=== PATIENT | male | born 1970 | race Caucasian/White ===

== ENCOUNTER 2019-06-11 10:10 | Inpatient (IN) | payer OTHER ==
[2019-06-11 10:37] LABS: ADD MAN DIFF? NO
[2019-06-11 10:39] LABS: WHITE BLOOD COUNT 10.4 10^3/ul (4.8-10.8)
[2019-06-11 10:39] LABS: BASOPHILS % 0.4 % (0.0-2.0); EOSINOPHILS % 0.1 % (0.0-7.0); HEMATOCRIT 50.8 % (42.0-52.0); HEMOGLOBIN 15.9 g/dl (14.0-18.0); LYMPHOCYTES # 1.1 10^3/ul (0.8-2.9); MEAN CORPUSCULAR HEMOGLOBIN 26.7 pg (29.0-33.0); MEAN CORPUSCULAR HGB CONC 31.3 g/dl (32.0-37.0); MEAN CORPUSCULAR VOLUME 85.2 fl (82.0-101.0); MEAN PLATELET VOLUME 8.5 fl (7.4-10.4); MONOCYTE # 0.6 10^3/ul (0.3-0.9); NEUTROPHIL # 8.5 10^3/ul (1.6-7.5); NEUTROPHILS % 81.8 % (39.0-77.0); PLATELET COUNT 209 10^3/UL (140-415); RED BLOOD COUNT 5.96 10^6/ul (4.70-6.10); RED CELL DISTRIBUTION WIDTH 16.6 % (11.5-14.5)
[2019-06-11] MEDS: CEFEPIME 2GM/50 ML (PMX) 50 ML IVPB (10:39)
[2019-06-11] MEDS: SODIUM CHLORIDE 0.9% 1L BAG IV* (10:39)
[2019-06-11 10:55] LABS: ALANINE AMINOTRANSFERASE 31 IU/L (13-69); ALBUMIN 4.1 g/dl (3.3-4.9); ALKALINE PHOSPHATASE 121 IU/L (42-121); ANION GAP 13 (5-13); ASPARTATE AMINO TRANSFERASE 26 IU/L (15-46); BILIRUBIN,INDIRECT 0.7 mg/dl (0-1.1); BILIRUBIN,TOTAL 0.7 mg/dl (0.2-1.3); BLOOD UREA NITROGEN 50 mg/dl (7-20); CALCIUM 9.1 mg/dl (8.4-10.2); CARBON DIOXIDE 22 mmol/L (21-31); CHLORIDE 97 mmol/L (97-110); CREATININE 2.35 mg/dl (0.61-1.24); Estimated GFR 30 mL/min (>60); GLUCOSE 119 mg/dl (70-220); POTASSIUM 5.5 mmol/L (3.5-5.1); SODIUM 132 mmol/L (135-144); TOTAL PROTEIN 7.8 g/dl (6.1-8.1)
[2019-06-11 11:02] LABS: INR 1.09; PARTIAL THROMBOPLASTIN TIME 31.3 Sec (23.0-35.0); PROTIME 14.2 Sec (11.9-14.9); PT RATIO 1.1
[2019-06-11 11:06] LABS: TROPONIN-I 0.076 ng/ml (0.000-0.120)
[2019-06-11] MEDS: VANCOMYCIN 1 GM (PMX) 250 ML IVPB (11:46)
[2019-06-11] MEDS: NORepinephrine 8MG/250 ML (PMX 250 ML IV (11:59)
[2019-06-11 13:19] LABS: LACTIC ACID 1.9 mmol/L (0.5-2.0)
[2019-06-11] MEDS ORDERED: SOD CHLORIDE 0.9% 1,000 ML IV (13:51)
[2019-06-11] MEDS ORDERED: ONDANSETRON 4 MG INJ IV (14:00)
[2019-06-11] MEDS ORDERED: NACL 0.9% 3 ML SYG IV (14:00)
[2019-06-11] MEDS ORDERED: VANCOMYCIN IV PER PHARMACY XX (14:30)
[2019-06-11] MEDS ORDERED: ALBUTEROL/IPRATROPIUM (NEB) 3 ML AMP NEB (14:30)
[2019-06-11 15:02] LABS: AADO2 Arterial 154.3 mmHg (7.0-24.0); Allen Test ACCEPTAB; Arterial Base Excess -9.6 mmol/L (-3.0-3); Arterial Blood Gas Oxygen Sat 95.1 mmHG (95.0-98.0); Arterial COHb 1.1 % (0.0-3.0); Arterial HCO3 15.6 mmol/L (22.0-26.0); Arterial MetHb 0.1 % (0.0-1.5); Arterial pCO2 32.5 mmhg (35-45); MODE NASAL CANNULA; Site Right Radial
[2019-06-11] MEDS ORDERED: VASOPRESSIN 60 UNIT in DEXTROSE 5% 57 ML IV (15:30)
[2019-06-11 15:32] LABS: LACTIC ACID 3.2 mmol/L (0.5-2.0)
[2019-06-11] MEDS ORDERED: SODIUM BICARBONATE (IV ADD) 100 MEQ in DEXTROSE 5%-0.45% NACL 1,000 ML IV (16:00)
[2019-06-11] MEDS ORDERED: PENDING SANTYL ORDER FOR WOUND CARE XX (16:00)
[2019-06-11] MEDS: CEFTRIAXONE 1 GM/50 ML (PMX) 50 ML IVPB (16:39)
[2019-06-11] MEDS: SODIUM BICARBONATE (IV ADD) 100 MEQ in DEXTROSE 5%-0.45% NACL 1,000 ML IV (16:40)
[2019-06-11] MEDS: HEPARIN 5,000 UNIT/1 ML VIAL SC (20:52)
[2019-06-12] MEDS: SODIUM BICARBONATE (IV ADD) 100 MEQ in DEXTROSE 5%-0.45% NACL 1,000 ML IV ×2 (03:05→13:01)
[2019-06-12] MEDS: FAMOTIDINE 20 MG INJ IV (05:24)
[2019-06-12 06:30] LABS: HEMATOCRIT 37.7 % (42.0-52.0); HEMOGLOBIN 12.3 g/dl (14.0-18.0); MEAN CORPUSCULAR HEMOGLOBIN 27.3 pg (29.0-33.0); MEAN CORPUSCULAR HGB CONC 32.6 g/dl (32.0-37.0); MEAN CORPUSCULAR VOLUME 83.6 fl (82.0-101.0); MEAN PLATELET VOLUME 8.9 fl (7.4-10.4); PLATELET COUNT 184 10^3/UL (140-415); POSITIVE DIFF @See below; RED BLOOD COUNT 4.51 10^6/ul (4.70-6.10); RED CELL DISTRIBUTION WIDTH 16.7 % (11.5-14.5)
[2019-06-12 06:30] LABS: WHITE BLOOD COUNT 11.6 10^3/ul (4.8-10.8)
[2019-06-12 06:33] LABS: ADD MAN DIFF? YES
[2019-06-12 06:50] LABS: LACTIC ACID 2.1 mmol/L (0.5-2.0)
[2019-06-12 06:57] LABS: HEMOGLOBIN A1C 4.9 % (0-5.9)
[2019-06-12 07:08] LABS: ALANINE AMINOTRANSFERASE 33 IU/L (13-69); ALBUMIN 2.8 g/dl (3.3-4.9); ALBUMIN/GLOBULIN RATIO 1.03; ALKALINE PHOSPHATASE 89 IU/L (42-121); ANION GAP 11 (5-13); ASPARTATE AMINO TRANSFERASE 29 IU/L (15-46); BILIRUBIN,INDIRECT 0.4 mg/dl (0-1.1); BILIRUBIN,TOTAL 0.4 mg/dl (0.2-1.3); BLOOD UREA NITROGEN 46 mg/dl (7-20); CALCIUM 7.9 mg/dl (8.4-10.2); CARBON DIOXIDE 22 mmol/L (21-31); CHLORIDE 105 mmol/L (97-110); CHOL/HDL RATIO 3.4 RATIO; CHOLESTEROL 83 mg/dl (100-200); CREATININE 1.45 mg/dl (0.61-1.24); Estimated GFR 52 mL/min (>60); GLUCOSE 125 mg/dl (70-220); HDL CHOLESTEROL 24 mg/dl (28-71); LDL CHOLESTEROL,CALCULATED 45 mg/dl; MAGNESIUM 1.3 mg/dl (1.7-2.5); POTASSIUM 3.9 mmol/L (3.5-5.1); SODIUM 138 mmol/L (135-144); TOTAL PROTEIN 5.5 g/dl (6.1-8.1); TRIGLYCERIDES 71 mg/dl (0-149)
[2019-06-12 07:15] LABS: ANISOCYTOSIS 1+ (0-0); BAND NEUTROPHILS #M 5.4 10^3/ul (0.0-0.6); BAND NEUTROPHILS % (M) 47 % (0-4); BASOPHIL #M 0.1 10^3/ul (0.0-0.0); BASOPHILS % (M) 1 % (0-2); BURR CELLS 1+ (0-0); EOSINOPHILS % (M) 2 % (0-7); LYMPHOCYTES #M 1.5 10^3/ul (0.8-2.9); LYMPHOCYTES % (M) 13 % (15-51); MICROCYTOSIS 1+ (0-0); MONOCYTE #M 0.4 10^3/ul (0.3-0.9); MONOCYTES % (M) 4 % (0-11); PLATELET ESTIMATE NORMAL; POIKILOCYTOSIS 1+ (0-0); SEG NEUT #M 4.5 10^3/ul (1.6-7.5); SEGMENTED NEUTROPHILS (M) % 33 % (39-77); SMUDGE%M 9 % (0-0)
[2019-06-12] MEDS: VANCOMYCIN 750 MG (PMX) 250 ML IVPB (08:12)
[2019-06-12] MEDS: HEPARIN 5,000 UNIT/1 ML VIAL SC ×2 (08:15→21:17)
[2019-06-12 08:33] LABS: AADO2 Arterial 88.9 mmHg (7.0-24.0); Allen Test ACCEPTAB; Arterial Base Excess -0.4 mmol/L (-3.0-3); Arterial Blood Gas Oxygen Sat 98.3 mmHG (95.0-98.0); Arterial COHb 0.2 % (0.0-3.0); Arterial Fraction of Oxyhgb 98.1 % (93.0-99.0); Arterial HCO3 21.8 mmol/L (22.0-26.0); Arterial MetHb 0 % (0.0-1.5); Arterial pCO2 28.6 mmhg (35-45); MODE VENT - AC; Site Right Radial
[2019-06-12 10:13] LABS: ADD UMIC YES; UR ASCORBIC ACID NEGATIVE (NEGATIVE); UR BILIRUBIN (Dip) NEGATIVE (NEGATIVE); UR BLOOD (Dip) 3+ mg/dL (NEGATIVE); UR CLARITY TURBID (CLEAR); UR GLUCOSE (Dip) NEGATIVE (NEGATIVE); UR KETONES (Dip) TRACE mg/dL (NEGATIVE); UR LEUKOCYTE ESTERASE (Dip) 1+ Leu/ul (NEGATIVE); UR NITRITE (Dip) NEGATIVE (NEGATIVE); UR SPECIFIC GRAVITY (Dip) 1.018 (1.003-1.030); UR TOTAL PROTEIN (Dip) 3+ mg/dl (NEGATIVE); UR UROBILINOGEN (Dip) NEGATIVE (NEGATIVE)
[2019-06-12 10:20] LABS: URINE RBCS >200 /HPF (0)
[2019-06-12 10:21] LABS: UR BACTERIA MODERATE /HPF (NONE SEEN); UR SQUAMOUS EPITHELIAL CELL FEW /HPF (FEW)
[2019-06-12 10:22] LABS: UR AMORPHOUS CRYSTAL FEW /HPF (NONE SEEN)
[2019-06-12 10:23] LABS: UR COLOR RED (YELLOW)
[2019-06-12] MEDS: MAGNESIUM SULFATE 3 GM in DEXTROSE 5% 100 ML IVPB (13:01)
[2019-06-12] MEDS: NORepinephrine 8MG/250 ML (PMX 250 ML IV (14:48)
[2019-06-12 15:24] LABS: LACTIC ACID 1.6 mmol/L (0.5-2.0)
[2019-06-12] MEDS: CEFTRIAXONE 1 GM/50 ML (PMX) 50 ML IVPB (15:39)
[2019-06-12 20:03] LABS: ADD UMIC YES; UR ASCORBIC ACID NEGATIVE (NEGATIVE); UR BILIRUBIN (Dip) NEGATIVE (NEGATIVE); UR BLOOD (Dip) 3+ mg/dL (NEGATIVE); UR CLARITY TURBID (CLEAR); UR COLOR AMBER (YELLOW); UR GLUCOSE (Dip) NEGATIVE (NEGATIVE); UR KETONES (Dip) NEGATIVE (NEGATIVE); UR LEUKOCYTE ESTERASE (Dip) 2+ Leu/ul (NEGATIVE); UR NITRITE (Dip) NEGATIVE (NEGATIVE); UR RBC > 182 /HPF (0-5); UR SPECIFIC GRAVITY (Dip) 1.017 (1.003-1.030); UR TOTAL PROTEIN (Dip) 3+ mg/dl (NEGATIVE); UR UROBILINOGEN (Dip) NEGATIVE (NEGATIVE); UR WBC > 182 /HPF (0-5)
[2019-06-12 20:16] LABS: LACTIC ACID 1.7 mmol/L (0.5-2.0)
[2019-06-12] MEDS: VANCOMYCIN 500 MG (PMX) 100 ML IVPB (21:15)
[2019-06-13] MEDS: SODIUM BICARBONATE (IV ADD) 100 MEQ in DEXTROSE 5%-0.45% NACL 1,000 ML IV (01:29)
[2019-06-13] MEDS: morphine 4 MG/ML VIAL IV (03:23)
[2019-06-13] MEDS: FAMOTIDINE 20 MG INJ IV (05:14)
[2019-06-13 05:17] LABS: WHITE BLOOD COUNT 9.1 10^3/ul (4.8-10.8)
[2019-06-13 05:17] LABS: HEMATOCRIT 33.5 % (42.0-52.0); MEAN CORPUSCULAR HEMOGLOBIN 27.2 pg (29.0-33.0); MEAN CORPUSCULAR HGB CONC 32.8 g/dl (32.0-37.0); MEAN CORPUSCULAR VOLUME 82.9 fl (82.0-101.0); PLATELET COUNT 145 10^3/UL (140-415); POSITIVE DIFF @See below; RED BLOOD COUNT 4.04 10^6/ul (4.70-6.10); RED CELL DISTRIBUTION WIDTH 16.4 % (11.5-14.5)
[2019-06-13 05:41] LABS: ANION GAP 4 (5-13); BLOOD UREA NITROGEN 23 mg/dl (7-20); CALCIUM 8.4 mg/dl (8.4-10.2); CARBON DIOXIDE 32 mmol/L (21-31); CHLORIDE 104 mmol/L (97-110); CREATININE 0.51 mg/dl (0.61-1.24); Estimated GFR > 60 mL/min (>60); GLUCOSE 129 mg/dl (70-220); MAGNESIUM 2.3 mg/dl (1.7-2.5); PHOSPHORUS 1.7 mg/dl (2.5-4.9); SODIUM 140 mmol/L (135-144)
[2019-06-13 05:49] LABS: ADD MAN DIFF? YES; POTASSIUM 2.9 mmol/L (3.5-5.1)
[2019-06-13] MEDS: POTASSIUM PHOSPHATE 30 MM in SOD CHLORIDE 0.9% 250 ML IVPB (06:30)
[2019-06-13 07:10] LABS: ANISOCYTOSIS 1+ (0-0); BAND NEUTROPHILS #M 2.3 10^3/ul (0.0-0.6); BAND NEUTROPHILS % (M) 26 % (0-4); BURR CELLS 1+ (0-0); EOSINOPHILS % (M) 2 % (0-7); LYMPHOCYTES #M 0.2 10^3/ul (0.8-2.9); LYMPHOCYTES % (M) 3 % (15-51); MICROCYTOSIS 1+ (0-0); MONOCYTES % (M) 1 % (0-11); OVALOCYTES 1+ (0-0); PLATELET ESTIMATE NORMAL; POIKILOCYTOSIS 1+ (0-0); REACTIVE LYMPHOCYTES #M 0.9 10^3/ul (0.0-0.0); REACTIVE LYMPHOCYTES% (M) 10 % (0-0); SEG NEUT #M 5.5 10^3/ul (1.6-7.5); SEGMENTED NEUTROPHILS (M) % 58 % (39-77); SMUDGE%M 35 % (0-0)
[2019-06-13] MEDS: BALSAM PERU/CASTOR OIL 60 GM TUBE TOP (09:00)
[2019-06-13] MEDS: ONDANSETRON 4 MG INJ IV (09:49)
[2019-06-13] MEDS: VANCOMYCIN 500 MG (PMX) 100 ML IVPB (09:49)
[2019-06-13] MEDS: COLLAGENASE 5 GM (UD JAR) TOP (09:49)
[2019-06-13] MEDS: HEPARIN 5,000 UNIT/1 ML VIAL SC ×2 (10:58→21:27)
[2019-06-13] MEDS: PANTOPRAZOLE (EC) 40 MG TAB PO ×2 (11:00→21:00)
[2019-06-13] MEDS: POTASSIUM CHLORIDE 100 ML IVPB ×2 (12:30→14:00)
[2019-06-13] MEDS: DEXTROSE 5%-0.45% NACL 1,000 ML IV ×2 (12:30→21:49)
[2019-06-13] MEDS: METOCLOPRAMIDE 10 MG INJ IV (12:30)
[2019-06-13] MEDS: ZINC SULFATE 220 MG CAP NGT (12:30)
[2019-06-13] MEDS: ASCORBIC ACID 500 MG TAB PO (12:30)
[2019-06-13] MEDS: MULTIVITAMINS THERAPEUTIC TAB PO (12:31)
[2019-06-13] MEDS: THIAMINE 100 MG TAB PO (12:31)
[2019-06-13] MEDS: CEFTRIAXONE 1 GM/50 ML (PMX) 50 ML IVPB (17:04)
[2019-06-13 19:56] LABS: VANCOMYCIN,TROUGH 7.7 ug/ml (10.0-20.0)
[2019-06-13] MEDS ORDERED: TRIMETHOBENZAMIDE 100 MG/ML VIAL IM (20:00)
[2019-06-13] MEDS: LACTOBACILLUS RHAMNOSUS CAP PO ×2 (21:00→21:16)
[2019-06-13] MEDS: ATORVASTATIN 10 MG TAB NGT ×2 (21:00→21:16)
[2019-06-13] MEDS: VANCOMYCIN 750 MG (PMX) 250 ML IVPB (21:16)
[2019-06-13] MEDS: PHENYLephrine 40 MG in DEXTROSE 5% 246 ML IV (21:25)
[2019-06-14] MEDS: LORAZEPAM 2 MG INJ IV (02:21)
[2019-06-14] MEDS: DILTIAZEM 25 MG INJ IV (03:22)
[2019-06-14] MEDS: PHENYLephrine 40 MG in DEXTROSE 5% 246 ML IV ×2 (03:32→18:15)
[2019-06-14] MEDS: ACETAMINOPHEN 325 MG TAB PO ×3 (03:40→14:56)
[2019-06-14] MEDS: PANTOPRAZOLE 40 MG INJ IV ×2 (05:03→18:04)
[2019-06-14] MEDS: FAMOTIDINE 20 MG INJ IV (05:03)
[2019-06-14 05:15] LABS: ADD MAN DIFF? NO
[2019-06-14 05:28] LABS: WHITE BLOOD COUNT 7.4 10^3/ul (4.8-10.8)
[2019-06-14 05:28] LABS: ABNORMAL IP MESSAGE 1; HEMATOCRIT 30.5 % (42.0-52.0); HEMOGLOBIN 8.8 g/dl (14.0-18.0); MEAN CORPUSCULAR HEMOGLOBIN 27.2 pg (29.0-33.0); MEAN CORPUSCULAR HGB CONC 28.9 g/dl (32.0-37.0); MEAN CORPUSCULAR VOLUME 94.4 fl (82.0-101.0); MEAN PLATELET VOLUME 9.7 fl (7.4-10.4); PLATELET COUNT 153 10^3/UL (140-415); POSITIVE DIFF @See below; RED BLOOD COUNT 3.23 10^6/ul (4.70-6.10)
[2019-06-14 05:45] LABS: MAGNESIUM 1.5 mg/dl (1.7-2.5)
[2019-06-14 05:45] LABS: PHOSPHORUS 2.2 mg/dl (2.5-4.9)
[2019-06-14] MEDS: DEXTROSE 5%-0.45% NACL 1,000 ML IV ×2 (06:16→16:22)
[2019-06-14 06:51] LABS: ANION GAP 7 (5-13); BLOOD UREA NITROGEN 17 mg/dl (7-20); CALCIUM 8.6 mg/dl (8.4-10.2); CARBON DIOXIDE 27 mmol/L (21-31); CHLORIDE 107 mmol/L (97-110); CREATININE 0.44 mg/dl (0.61-1.24); Estimated GFR > 60 mL/min (>60); GLUCOSE 127 mg/dl (70-220); POTASSIUM 3.6 mmol/L (3.5-5.1); SODIUM 141 mmol/L (135-144)
[2019-06-14] MEDS: MAGNESIUM SULFATE 2 GM/50 ML 50 ML IVPB (07:40)
[2019-06-14 07:42] LABS: ANISOCYTOSIS 1+ (0-0); BAND NEUTROPHILS #M 1.6 10^3/ul (0.0-0.6); BAND NEUTROPHILS % (M) 22 % (0-4); BURR CELLS 1+ (0-0); EOSINOPHILS % (M) 2 % (0-7); GIANT THROMBO% (M) 1 % (0-0); MONOCYTE #M 0.4 10^3/ul (0.3-0.9); MONOCYTES % (M) 6 % (0-11); OVALOCYTES 1+ (0-0); PLATELET ESTIMATE NORMAL; SEG NEUT #M 5.3 10^3/ul (1.6-7.5); SEGMENTED NEUTROPHILS (M) % 70 % (39-77); SMUDGE%M 3 % (0-0)
[2019-06-14] MEDS: COLLAGENASE 5 GM (UD JAR) TOP (09:23)
[2019-06-14] MEDS: BALSAM PERU/CASTOR OIL 60 GM TUBE TOP (09:23)
[2019-06-14] MEDS: HEPARIN 5,000 UNIT/1 ML VIAL SC ×2 (09:26→20:46)
[2019-06-14] MEDS: VANCOMYCIN 750 MG (PMX) 250 ML IVPB ×2 (09:38→21:29)
[2019-06-14] MEDS: LACTOBACILLUS RHAMNOSUS CAP PO ×2 (10:01→20:45)
[2019-06-14] MEDS: THIAMINE 100 MG TAB PO (10:01)
[2019-06-14] MEDS: ASCORBIC ACID 500 MG TAB PO (10:01)
[2019-06-14] MEDS: MULTIVITAMINS THERAPEUTIC TAB PO (10:02)
[2019-06-14] MEDS: ZINC SULFATE 220 MG CAP NGT (10:22)
[2019-06-14 10:29] LABS: HEMATOCRIT 30.9 % (42.0-52.0); HEMOGLOBIN 9.7 g/dl (14.0-18.0)
[2019-06-14] MEDS: SODIUM PHOSPHATE 30 MMOL in SOD CHLORIDE 0.9% 250 ML IVPB (10:46)
[2019-06-14] MEDS: ONDANSETRON INJ 8 MG in DEXTROSE 5% 50 ML IV (12:54)
[2019-06-14] MEDS: FLUCONAZOLE 100 MG TAB PO (13:30)
[2019-06-14] MEDS: RIFAMPIN 300 MG CAP PO ×2 (14:08→14:31)
[2019-06-14 14:17] LABS: AADO2 Arterial 96.1 mmHg (7.0-24.0); Allen Test ACCEPTAB; Arterial Base Excess -8.6 mmol/L (-3.0-3); Arterial Blood Gas Oxygen Sat 97.8 mmHG (95.0-98.0); Arterial COHb 0.1 % (0.0-3.0); Arterial Fraction of Oxyhgb 97.4 % (93.0-99.0); Arterial HCO3 13.6 mmol/L (22.0-26.0); Arterial MetHb 0.3 % (0.0-1.5); Arterial pCO2 19.5 mmhg (35-45); MODE VENT - AC; Site Right Radial
[2019-06-14] MEDS: morphine 2 MG INJ IV (16:23)
[2019-06-14 17:41] LABS: AADO2 Arterial 106.1 mmHg (7.0-24.0); Allen Test ACCEPTAB; Arterial Base Excess 0.7 mmol/L (-3.0-3); Arterial Blood Gas Oxygen Sat 97.4 mmHG (95.0-98.0); Arterial COHb 0.5 % (0.0-3.0); Arterial Fraction of Oxyhgb 96.6 % (93.0-99.0); Arterial HCO3 23.2 mmol/L (22.0-26.0); Arterial MetHb 0.3 % (0.0-1.5); MODE VENT - AC; Site Right Radial
[2019-06-14 19:51] LABS: OCCULT BLOOD STOOL NEGATIVE (NEGATIVE)
[2019-06-14] MEDS: CEFEPIME 1GM/50 ML (PMX) 50 ML IVPB (20:45)
[2019-06-14] MEDS: MUPIROCIN 2% 22 GM OINT TOP (20:45)
[2019-06-14] MEDS: ATORVASTATIN 10 MG TAB NGT (20:45)
[2019-06-14] MEDS: BARIUM SULF 2% 450 ML BTL (BERRY SMOOTHIE) PO (22:05)
[2019-06-15] MEDS: SOD CHLORIDE 0.9% 100 ML (01:46)
[2019-06-15] MEDS: IOHEXOL 300MG/ML 150 ML BTL ×2 (01:47→20:05)
[2019-06-15] MEDS: DEXTROSE 5%-0.45% NACL 1,000 ML IV ×3 (01:53→21:04)
[2019-06-15 05:34] LABS: ADD MAN DIFF? NO
[2019-06-15 05:43] LABS: WHITE BLOOD COUNT 7.1 10^3/ul (4.8-10.8)
[2019-06-15 05:43] LABS: BASOPHILS % 0.3 % (0.0-2.0); EOSINOPHILS # 0.5 10^3/ul (0.0-0.5); EOSINOPHILS % 6.3 % (0.0-7.0); HEMOGLOBIN 8.8 g/dl (14.0-18.0); LYMPHOCYTES # 0.9 10^3/ul (0.8-2.9); LYMPHOCYTES % 12.1 % (15.0-51.0); MEAN CORPUSCULAR HEMOGLOBIN 26.8 pg (29.0-33.0); MEAN CORPUSCULAR HGB CONC 31.4 g/dl (32.0-37.0); MEAN CORPUSCULAR VOLUME 85.4 fl (82.0-101.0); MEAN PLATELET VOLUME 9.7 fl (7.4-10.4); MONOCYTE # 0.4 10^3/ul (0.3-0.9); MONOCYTES % 6.2 % (0.0-11.0); NEUTROPHIL # 5.3 10^3/ul (1.6-7.5); NEUTROPHILS % 74.1 % (39.0-77.0); PLATELET COUNT 127 10^3/UL (140-415); RED BLOOD COUNT 3.28 10^6/ul (4.70-6.10); RED CELL DISTRIBUTION WIDTH 16.1 % (11.5-14.5)
[2019-06-15] MEDS: PANTOPRAZOLE 40 MG INJ IV ×2 (05:56→18:03)
[2019-06-15 06:20] LABS: ANION GAP 6 (5-13); BLOOD UREA NITROGEN 12 mg/dl (7-20); CARBON DIOXIDE 26 mmol/L (21-31); CHLORIDE 104 mmol/L (97-110); Estimated GFR > 60 mL/min (>60); GLUCOSE 99 mg/dl (70-220); SODIUM 136 mmol/L (135-144)
[2019-06-15 06:27] LABS: PHOSPHORUS 2.3 mg/dl (2.5-4.9)
[2019-06-15 06:28] LABS: POTASSIUM 2.7 mmol/L (3.5-5.1)
[2019-06-15] MEDS ORDERED: POTASSIUM CHLORIDE 100 ML IVPB (07:30)
[2019-06-15] MEDS ORDERED: SOD CHLORIDE 0.9% IV (08:30)
[2019-06-15] MEDS ORDERED: POTASSIUM CHLORIDE IV (08:30)
[2019-06-15] MEDS: SOD CHLORIDE 0.9% IV (08:34)
[2019-06-15] MEDS: POTASSIUM CHLORIDE IV (08:34)
[2019-06-15] MEDS: FLUCONAZOLE 100 MG TAB PO (08:56)
[2019-06-15] MEDS: RIFAMPIN 300 MG CAP PO (08:56)
[2019-06-15] MEDS: ZINC SULFATE 220 MG CAP NGT (08:56)
[2019-06-15] MEDS: LACTOBACILLUS RHAMNOSUS CAP PO ×2 (08:56→20:06)
[2019-06-15] MEDS: THIAMINE 100 MG TAB PO (08:57)
[2019-06-15] MEDS: MULTIVITAMINS THERAPEUTIC TAB PO (08:57)
[2019-06-15] MEDS: ASCORBIC ACID 500 MG TAB PO (08:57)
[2019-06-15] MEDS: CEFEPIME 1GM/50 ML (PMX) 50 ML IVPB ×2 (09:09→21:04)
[2019-06-15] MEDS: BALSAM PERU/CASTOR OIL 60 GM TUBE TOP (09:10)
[2019-06-15] MEDS: morphine 2 MG INJ IV (09:10)
[2019-06-15] MEDS: COLLAGENASE 5 GM (UD JAR) TOP (09:10)
[2019-06-15] MEDS: MUPIROCIN 2% 22 GM OINT TOP ×2 (09:11→21:04)
[2019-06-15] MEDS: HEPARIN 5,000 UNIT/1 ML VIAL SC ×2 (09:11→21:14)
[2019-06-15] MEDS: VANCOMYCIN 750 MG (PMX) 250 ML IVPB (10:35)
[2019-06-15] MEDS: POTASSIUM PHOSPHATE 20 MEQ in SOD CHLORIDE 0.9% 250 ML IVPB (11:41)
[2019-06-15] MEDS: FLUCONAZOLE 200 MG (PMX) 100 ML IVPB (15:23)
[2019-06-15] MEDS: DEXTROSE 5% IVPB (16:41)
[2019-06-15] MEDS: RIFAMPIN IVPB (16:41)
[2019-06-15] MEDS: TIGECYCLINE 100 MG in SOD CHLORIDE 0.9% 100 ML IVPB (17:22)
[2019-06-15] MEDS: ATORVASTATIN 10 MG TAB NGT (20:06)
[2019-06-15] MEDS: DAKINS 0.0125%(1/40) 473 ML SOLUTION TP (21:04)
[2019-06-16] MEDS: TIGECYCLINE 50 MG in SOD CHLORIDE 0.9% 100 ML IVPB ×3 (00:15→20:32)
[2019-06-16 05:02] LABS: ADD MAN DIFF? NO
[2019-06-16 05:05] LABS: WHITE BLOOD COUNT 5.4 10^3/ul (4.8-10.8)
[2019-06-16 05:05] LABS: EOSINOPHILS # 0.4 10^3/ul (0.0-0.5); EOSINOPHILS % 7.8 % (0.0-7.0); HEMATOCRIT 29.2 % (42.0-52.0); HEMOGLOBIN 9.2 g/dl (14.0-18.0); LYMPHOCYTES # 0.8 10^3/ul (0.8-2.9); LYMPHOCYTES % 14.4 % (15.0-51.0); MEAN CORPUSCULAR HEMOGLOBIN 27.3 pg (29.0-33.0); MEAN CORPUSCULAR HGB CONC 31.5 g/dl (32.0-37.0); MEAN CORPUSCULAR VOLUME 86.6 fl (82.0-101.0); MEAN PLATELET VOLUME 9.3 fl (7.4-10.4); MONOCYTE # 0.4 10^3/ul (0.3-0.9); MONOCYTES % 6.5 % (0.0-11.0); NEUTROPHIL # 3.7 10^3/ul (1.6-7.5); NEUTROPHILS % 69.6 % (39.0-77.0); PLATELET COUNT 110 10^3/UL (140-415); RED BLOOD COUNT 3.37 10^6/ul (4.70-6.10)
[2019-06-16 05:24] LABS: ALANINE AMINOTRANSFERASE 21 IU/L (13-69); ALBUMIN 2.6 g/dl (3.3-4.9); ALKALINE PHOSPHATASE 76 IU/L (42-121); ASPARTATE AMINO TRANSFERASE 14 IU/L (15-46); BILIRUBIN,INDIRECT 1.9 mg/dl (0-1.1); BILIRUBIN,TOTAL 1.9 mg/dl (0.2-1.3); TOTAL PROTEIN 5.8 g/dl (6.1-8.1)
[2019-06-16 05:43] LABS: PHOSPHORUS 2.8 mg/dl (2.5-4.9)
[2019-06-16 05:43] LABS: MAGNESIUM 1.8 mg/dl (1.7-2.5)
[2019-06-16 05:45] LABS: ANION GAP 7 (5-13); BLOOD UREA NITROGEN 16 mg/dl (7-20); CALCIUM 7.8 mg/dl (8.4-10.2); CARBON DIOXIDE 23 mmol/L (21-31); CHLORIDE 109 mmol/L (97-110); CREATININE 0.36 mg/dl (0.61-1.24); Estimated GFR > 60 mL/min (>60); GLUCOSE 99 mg/dl (70-220); POTASSIUM 3.7 mmol/L (3.5-5.1); SODIUM 139 mmol/L (135-144)
[2019-06-16] MEDS: PANTOPRAZOLE 40 MG INJ IV ×2 (05:49→17:36)
[2019-06-16] MEDS: DEXTROSE 5%-0.45% NACL 1,000 ML IV (06:42)
[2019-06-16] MEDS: CEFEPIME 1GM/50 ML (PMX) 50 ML IVPB ×2 (08:22→20:27)
[2019-06-16] MEDS: COLLAGENASE 5 GM (UD JAR) TOP (08:23)
[2019-06-16] MEDS: MUPIROCIN 2% 22 GM OINT TOP ×2 (08:23→20:28)
[2019-06-16] MEDS: BALSAM PERU/CASTOR OIL 60 GM TUBE TOP (08:23)
[2019-06-16] MEDS: DAKINS 0.0125%(1/40) 473 ML SOLUTION TP ×2 (08:23→20:29)
[2019-06-16] MEDS: HEPARIN 5,000 UNIT/1 ML VIAL SC (08:27)
[2019-06-16] MEDS: THIAMINE 100 MG TAB PO (08:31)
[2019-06-16] MEDS: ZINC SULFATE 220 MG CAP NGT (08:31)
[2019-06-16] MEDS: MULTIVITAMINS THERAPEUTIC TAB PO (08:31)
[2019-06-16] MEDS: ASCORBIC ACID 500 MG TAB PO (08:31)
[2019-06-16] MEDS: LACTOBACILLUS RHAMNOSUS CAP PO ×2 (08:31→20:28)
[2019-06-16] MEDS: MAGNESIUM SULFATE 1 GM/D5W 100 ML IVPB (10:35)
[2019-06-16] MEDS: FLUCONAZOLE 200 MG (PMX) 100 ML IVPB (14:04)
[2019-06-16] MEDS: DEXTROSE 5% IVPB (17:36)
[2019-06-16] MEDS: RIFAMPIN IVPB (17:36)
[2019-06-16] MEDS: ATORVASTATIN 10 MG TAB NGT (20:28)
[2019-06-17 04:54] LABS: ADD MAN DIFF? NO
[2019-06-17 04:57] LABS: EOSINOPHILS # 0.4 10^3/ul (0.0-0.5); EOSINOPHILS % 7.1 % (0.0-7.0); HEMATOCRIT 26.9 % (42.0-52.0); HEMOGLOBIN 8.5 g/dl (14.0-18.0); LYMPHOCYTES # 0.8 10^3/ul (0.8-2.9); LYMPHOCYTES % 12.5 % (15.0-51.0); MEAN CORPUSCULAR HEMOGLOBIN 27.4 pg (29.0-33.0); MEAN CORPUSCULAR HGB CONC 31.6 g/dl (32.0-37.0); MEAN CORPUSCULAR VOLUME 86.8 fl (82.0-101.0); MEAN PLATELET VOLUME 9.5 fl (7.4-10.4); MONOCYTE # 0.5 10^3/ul (0.3-0.9); MONOCYTES % 7.7 % (0.0-11.0); NEUTROPHIL # 4.5 10^3/ul (1.6-7.5); NEUTROPHILS % 71.4 % (39.0-77.0); PLATELET COUNT 134 10^3/UL (140-415); RED CELL DISTRIBUTION WIDTH 16.3 % (11.5-14.5)
[2019-06-17 04:57] LABS: WHITE BLOOD COUNT 6.2 10^3/ul (4.8-10.8)
[2019-06-17 05:29] LABS: PHOSPHORUS 3.2 mg/dl (2.5-4.9)
[2019-06-17 05:29] LABS: MAGNESIUM 1.9 mg/dl (1.7-2.5)
[2019-06-17 05:31] LABS: ANION GAP 6 (5-13); BLOOD UREA NITROGEN 18 mg/dl (7-20); CALCIUM 7.7 mg/dl (8.4-10.2); CARBON DIOXIDE 23 mmol/L (21-31); CHLORIDE 111 mmol/L (97-110); CREATININE 0.47 mg/dl (0.61-1.24); Estimated GFR > 60 mL/min (>60); GLUCOSE 72 mg/dl (70-220); SODIUM 140 mmol/L (135-144)
[2019-06-17] MEDS: PANTOPRAZOLE 40 MG INJ IV ×2 (06:22→17:21)
[2019-06-17] MEDS: ZINC SULFATE 220 MG CAP NGT (08:36)
[2019-06-17] MEDS: MULTIVITAMINS THERAPEUTIC TAB PO (08:36)
[2019-06-17] MEDS: LACTOBACILLUS RHAMNOSUS CAP PO ×2 (08:36→20:25)
[2019-06-17] MEDS: THIAMINE 100 MG TAB PO (08:37)
[2019-06-17] MEDS: ASCORBIC ACID 500 MG TAB PO (08:37)
[2019-06-17] MEDS: CEFEPIME 1GM/50 ML (PMX) 50 ML IVPB ×2 (08:48→20:30)
[2019-06-17] MEDS: TIGECYCLINE 50 MG in SOD CHLORIDE 0.9% 100 ML IVPB ×2 (08:51→20:31)
[2019-06-17] MEDS: DAKINS 0.0125%(1/40) 473 ML SOLUTION TP ×2 (08:52→20:30)
[2019-06-17] MEDS: COLLAGENASE 5 GM (UD JAR) TOP (08:52)
[2019-06-17] MEDS: BALSAM PERU/CASTOR OIL 60 GM TUBE TOP (08:52)
[2019-06-17] MEDS: MUPIROCIN 2% 22 GM OINT TOP ×2 (08:53→20:30)
[2019-06-17] MEDS: RIFAMPIN IVPB (15:08)
[2019-06-17] MEDS: FLUCONAZOLE 200 MG (PMX) 100 ML IVPB (15:08)
[2019-06-17] MEDS: DEXTROSE 5% IVPB (15:08)
[2019-06-17] MEDS: ATORVASTATIN 10 MG TAB NGT (20:25)
[2019-06-17 21:11] LABS: AADO2 Arterial 109.1 mmHg (7.0-24.0); Allen Test ACCEPTAB; Arterial Base Excess -5.7 mmol/L (-3.0-3); Arterial Blood Gas Oxygen Sat 97.5 mmHG (95.0-98.0); Arterial COHb 0 % (0.0-3.0); Arterial Fraction of Oxyhgb 97.4 % (93.0-99.0); Arterial MetHb 0.1 % (0.0-1.5); MODE VENT - AC; Site Right Radial
[2019-06-18] MEDS: PANTOPRAZOLE 40 MG INJ IV ×2 (05:53→16:52)
[2019-06-18] MEDS: MULTIVITAMINS THERAPEUTIC TAB PO (07:30)
[2019-06-18] MEDS: ZINC SULFATE 220 MG CAP NGT (07:30)
[2019-06-18] MEDS: LACTOBACILLUS RHAMNOSUS CAP PO ×2 (07:30→22:06)
[2019-06-18] MEDS: THIAMINE 100 MG TAB PO (07:31)
[2019-06-18] MEDS: ASCORBIC ACID 500 MG TAB PO (07:31)
[2019-06-18] MEDS: CEFEPIME 1GM/50 ML (PMX) 50 ML IVPB ×2 (08:24→22:06)
[2019-06-18] MEDS: DAKINS 0.0125%(1/40) 473 ML SOLUTION TP ×2 (08:27→21:00)
[2019-06-18] MEDS: COLLAGENASE 5 GM (UD JAR) TOP (08:27)
[2019-06-18] MEDS: BALSAM PERU/CASTOR OIL 60 GM TUBE TOP (08:28)
[2019-06-18] MEDS: MUPIROCIN 2% 22 GM OINT TOP ×2 (08:28→21:00)
[2019-06-18] MEDS: morphine 2 MG INJ IV (09:02)
[2019-06-18] MEDS: TIGECYCLINE 50 MG in SOD CHLORIDE 0.9% 100 ML IVPB ×2 (09:46→21:00)
[2019-06-18 11:20] LABS: ADD MAN DIFF? NO
[2019-06-18 11:25] LABS: WHITE BLOOD COUNT 11.2 10^3/ul (4.8-10.8)
[2019-06-18 11:25] LABS: BASOPHILS % 0.2 % (0.0-2.0); EOSINOPHILS # 0.4 10^3/ul (0.0-0.5); EOSINOPHILS % 3.9 % (0.0-7.0); HEMATOCRIT 29.6 % (42.0-52.0); HEMOGLOBIN 9.1 g/dl (14.0-18.0); LYMPHOCYTES % 8.8 % (15.0-51.0); MEAN CORPUSCULAR HEMOGLOBIN 26.9 pg (29.0-33.0); MEAN CORPUSCULAR HGB CONC 30.7 g/dl (32.0-37.0); MEAN CORPUSCULAR VOLUME 87.6 fl (82.0-101.0); MEAN PLATELET VOLUME 9.3 fl (7.4-10.4); MONOCYTE # 0.7 10^3/ul (0.3-0.9); MONOCYTES % 6.4 % (0.0-11.0); NEUTROPHIL # 8.8 10^3/ul (1.6-7.5); NEUTROPHILS % 79.1 % (39.0-77.0); PLATELET COUNT 181 10^3/UL (140-415); RED BLOOD COUNT 3.38 10^6/ul (4.70-6.10); RED CELL DISTRIBUTION WIDTH 16.5 % (11.5-14.5)
[2019-06-18 11:45] LABS: ANION GAP 9 (5-13); BLOOD UREA NITROGEN 18 mg/dl (7-20); CALCIUM 7.6 mg/dl (8.4-10.2); CARBON DIOXIDE 20 mmol/L (21-31); CHLORIDE 115 mmol/L (97-110); CREATININE 0.47 mg/dl (0.61-1.24); Estimated GFR > 60 mL/min (>60); GLUCOSE 55 mg/dl (70-220); POTASSIUM 3.2 mmol/L (3.5-5.1); SODIUM 144 mmol/L (135-144)
[2019-06-18] MEDS: DEXTROSE 5% IVPB (15:43)
[2019-06-18] MEDS: FLUCONAZOLE 200 MG (PMX) 100 ML IVPB (15:43)
[2019-06-18] MEDS: RIFAMPIN IVPB (15:43)
[2019-06-18] MEDS: ATORVASTATIN 10 MG TAB NGT (22:06)
[2019-06-19] MEDS: PANTOPRAZOLE 40 MG INJ IV ×2 (06:36→17:29)
[2019-06-19 08:24] LABS: ADD MAN DIFF? NO
[2019-06-19 08:37] LABS: BASOPHILS % 0.3 % (0.0-2.0); EOSINOPHILS # 0.8 10^3/ul (0.0-0.5); EOSINOPHILS % 7.9 % (0.0-7.0); HEMATOCRIT 31.6 % (42.0-52.0); HEMOGLOBIN 9.7 g/dl (14.0-18.0); LYMPHOCYTES # 1.3 10^3/ul (0.8-2.9); LYMPHOCYTES % 13.5 % (15.0-51.0); MEAN CORPUSCULAR HEMOGLOBIN 27.1 pg (29.0-33.0); MEAN CORPUSCULAR HGB CONC 30.7 g/dl (32.0-37.0); MEAN CORPUSCULAR VOLUME 88.3 fl (82.0-101.0); MEAN PLATELET VOLUME 10.1 fl (7.4-10.4); MONOCYTE # 0.7 10^3/ul (0.3-0.9); MONOCYTES % 7.4 % (0.0-11.0); NEUTROPHIL # 6.4 10^3/ul (1.6-7.5); NEUTROPHILS % 67.4 % (39.0-77.0); PLATELET COUNT 267 10^3/UL (140-415); RED BLOOD COUNT 3.58 10^6/ul (4.70-6.10); RED CELL DISTRIBUTION WIDTH 16.7 % (11.5-14.5)
[2019-06-19 08:37] LABS: WHITE BLOOD COUNT 9.5 10^3/ul (4.8-10.8)
[2019-06-19] MEDS: THIAMINE 100 MG TAB PO (08:40)
[2019-06-19] MEDS: MULTIVITAMINS THERAPEUTIC TAB PO (08:40)
[2019-06-19] MEDS: LACTOBACILLUS RHAMNOSUS CAP PO ×2 (08:41→21:35)
[2019-06-19] MEDS: ASCORBIC ACID 500 MG TAB PO (08:41)
[2019-06-19] MEDS: ZINC SULFATE 220 MG CAP NGT (08:41)
[2019-06-19] MEDS: COLLAGENASE 5 GM (UD JAR) TOP (08:41)
[2019-06-19] MEDS: CEFEPIME 1GM/50 ML (PMX) 50 ML IVPB ×2 (08:44→21:31)
[2019-06-19] MEDS: BALSAM PERU/CASTOR OIL 60 GM TUBE TOP (08:47)
[2019-06-19] MEDS: MUPIROCIN 2% 22 GM OINT TOP ×2 (08:47→21:35)
[2019-06-19] MEDS: DAKINS 0.0125%(1/40) 473 ML SOLUTION TP ×2 (08:47→21:35)
[2019-06-19 08:54] LABS: ANION GAP 10 (5-13); BLOOD UREA NITROGEN 21 mg/dl (7-20); CALCIUM 7.9 mg/dl (8.4-10.2); CARBON DIOXIDE 21 mmol/L (21-31); CHLORIDE 115 mmol/L (97-110); CREATININE 0.48 mg/dl (0.61-1.24); Estimated GFR > 60 mL/min (>60); GLUCOSE 58 mg/dl (70-220); MAGNESIUM 1.9 mg/dl (1.7-2.5); PHOSPHORUS 2.9 mg/dl (2.5-4.9); POTASSIUM 3.3 mmol/L (3.5-5.1); SODIUM 146 mmol/L (135-144)
[2019-06-19] MEDS: TIGECYCLINE 50 MG in SOD CHLORIDE 0.9% 100 ML IVPB ×2 (10:40→21:34)
[2019-06-19] MEDS: morphine 2 MG INJ IV (12:29)
[2019-06-19] MEDS: FLUCONAZOLE 200 MG (PMX) 100 ML IVPB (14:39)
[2019-06-19] MEDS: POTASSIUM CHLORIDE 20 MEQ POWDER FOR ORAL SOLN PO (14:39)
[2019-06-19] MEDS: RIFAMPIN IVPB (17:16)
[2019-06-19] MEDS: DEXTROSE 5% IVPB (17:16)
[2019-06-19] MEDS: ATORVASTATIN 10 MG TAB NGT (21:35)
[2019-06-20] MEDS: PANTOPRAZOLE 40 MG INJ IV ×2 (06:56→18:35)
[2019-06-20 08:37] LABS: ADD MAN DIFF? NO
[2019-06-20 08:43] LABS: WHITE BLOOD COUNT 9.7 10^3/ul (4.8-10.8)
[2019-06-20 08:43] LABS: BASOPHILS % 0.4 % (0.0-2.0); EOSINOPHILS # 0.6 10^3/ul (0.0-0.5); EOSINOPHILS % 6.4 % (0.0-7.0); HEMATOCRIT 34.7 % (42.0-52.0); HEMOGLOBIN 10.5 g/dl (14.0-18.0); LYMPHOCYTES # 1.4 10^3/ul (0.8-2.9); LYMPHOCYTES % 14.9 % (15.0-51.0); MEAN CORPUSCULAR HEMOGLOBIN 27.1 pg (29.0-33.0); MEAN CORPUSCULAR HGB CONC 30.3 g/dl (32.0-37.0); MEAN CORPUSCULAR VOLUME 89.7 fl (82.0-101.0); MEAN PLATELET VOLUME 9.6 fl (7.4-10.4); MONOCYTE # 0.7 10^3/ul (0.3-0.9); MONOCYTES % 6.9 % (0.0-11.0); NEUTROPHIL # 6.5 10^3/ul (1.6-7.5); NEUTROPHILS % 67.6 % (39.0-77.0); PLATELET COUNT 280 10^3/UL (140-415); RED BLOOD COUNT 3.87 10^6/ul (4.70-6.10); RED CELL DISTRIBUTION WIDTH 17.1 % (11.5-14.5)
[2019-06-20] MEDS: ASCORBIC ACID 500 MG TAB PO (09:00)
[2019-06-20] MEDS: ZINC SULFATE 220 MG CAP NGT (09:00)
[2019-06-20] MEDS: ENOXAPARIN 40 MG/0.4 ML SYG SC (09:00)
[2019-06-20] MEDS ORDERED: *CONTINUE SAME TPN IV (09:00)
[2019-06-20] MEDS: MULTIVITAMINS THERAPEUTIC TAB PO (09:00)
[2019-06-20] MEDS: THIAMINE 100 MG TAB PO (09:00)
[2019-06-20 09:10] LABS: ANION GAP 10 (5-13); BLOOD UREA NITROGEN 22 mg/dl (7-20); CALCIUM 8.1 mg/dl (8.4-10.2); CARBON DIOXIDE 19 mmol/L (21-31); CHLORIDE 121 mmol/L (97-110); CREATININE 0.45 mg/dl (0.61-1.24); Estimated GFR > 60 mL/min (>60); GLUCOSE 58 mg/dl (70-220); POTASSIUM 4.1 mmol/L (3.5-5.1); SODIUM 150 mmol/L (135-144)
[2019-06-20] MEDS: COLLAGENASE 5 GM (UD JAR) TOP (09:13)
[2019-06-20] MEDS: CEFEPIME 1GM/50 ML (PMX) 50 ML IVPB ×2 (09:13→21:33)
[2019-06-20] MEDS: MUPIROCIN 2% 22 GM OINT TOP (09:13)
[2019-06-20] MEDS: BALSAM PERU/CASTOR OIL 60 GM TUBE TOP (09:13)
[2019-06-20] MEDS: DAKINS 0.0125%(1/40) 473 ML SOLUTION TP (09:13)
[2019-06-20] MEDS: LACTOBACILLUS RHAMNOSUS CAP PO ×2 (10:05→21:35)
[2019-06-20] MEDS: TIGECYCLINE 50 MG in SOD CHLORIDE 0.9% 100 ML IVPB ×2 (10:14→22:37)
[2019-06-20] MEDS: FLUCONAZOLE 200 MG (PMX) 100 ML IVPB (14:30)
[2019-06-20] MEDS: DEXTROSE 5% IVPB (16:28)
[2019-06-20] MEDS: RIFAMPIN IVPB (16:28)
[2019-06-20] MEDS: ATORVASTATIN 10 MG TAB NGT (21:35)
[2019-06-21] MEDS: DAKINS 0.0125%(1/40) 473 ML SOLUTION TP ×2 (05:04→12:09)
[2019-06-21] MEDS: MUPIROCIN 2% 22 GM OINT TOP ×2 (05:04→08:45)
[2019-06-21] MEDS: PANTOPRAZOLE 40 MG INJ IV ×2 (06:17→17:20)
[2019-06-21 07:26] LABS: ADD MAN DIFF? NO
[2019-06-21 07:28] LABS: BASOPHIL # 0.1 10^3/ul (0.0-0.1); BASOPHILS % 0.6 % (0.0-2.0); EOSINOPHILS # 0.8 10^3/ul (0.0-0.5); EOSINOPHILS % 7.6 % (0.0-7.0); HEMATOCRIT 32.8 % (42.0-52.0); HEMOGLOBIN 9.9 g/dl (14.0-18.0); LYMPHOCYTES # 1.7 10^3/ul (0.8-2.9); LYMPHOCYTES % 15.2 % (15.0-51.0); MEAN CORPUSCULAR HGB CONC 30.2 g/dl (32.0-37.0); MEAN CORPUSCULAR VOLUME 89.6 fl (82.0-101.0); MEAN PLATELET VOLUME 9.4 fl (7.4-10.4); MONOCYTE # 0.8 10^3/ul (0.3-0.9); MONOCYTES % 7.3 % (0.0-11.0); NEUTROPHIL # 7.2 10^3/ul (1.6-7.5); NEUTROPHILS % 65.6 % (39.0-77.0); PLATELET COUNT 276 10^3/UL (140-415); RED BLOOD COUNT 3.66 10^6/ul (4.70-6.10); RED CELL DISTRIBUTION WIDTH 16.8 % (11.5-14.5)
[2019-06-21 07:28] LABS: WHITE BLOOD COUNT 10.9 10^3/ul (4.8-10.8)
[2019-06-21 07:46] LABS: ANION GAP 7 (5-13); BLOOD UREA NITROGEN 20 mg/dl (7-20); CALCIUM 7.9 mg/dl (8.4-10.2); CARBON DIOXIDE 24 mmol/L (21-31); CHLORIDE 121 mmol/L (97-110); CREATININE 0.52 mg/dl (0.61-1.24); Estimated GFR > 60 mL/min (>60); GLUCOSE 97 mg/dl (70-220); POTASSIUM 3.5 mmol/L (3.5-5.1); SODIUM 152 mmol/L (135-144)
[2019-06-21] MEDS: CEFEPIME 1GM/50 ML (PMX) 50 ML IVPB (08:19)
[2019-06-21] MEDS: ASCORBIC ACID 500 MG TAB PO (08:22)
[2019-06-21] MEDS: THIAMINE 100 MG TAB PO (08:22)
[2019-06-21] MEDS: COLLAGENASE 5 GM (UD JAR) TOP (08:22)
[2019-06-21] MEDS: MULTIVITAMINS THERAPEUTIC TAB PO (08:22)
[2019-06-21] MEDS: ZINC SULFATE 220 MG CAP NGT (08:22)
[2019-06-21] MEDS: LACTOBACILLUS RHAMNOSUS CAP PO ×2 (08:22→20:24)
[2019-06-21] MEDS: TIGECYCLINE 50 MG in SOD CHLORIDE 0.9% 100 ML IVPB ×2 (08:39→20:24)
[2019-06-21] MEDS: ENOXAPARIN 40 MG/0.4 ML SYG SC (08:50)
[2019-06-21] MEDS: morphine 2 MG INJ IV (11:00)
[2019-06-21] MEDS: BALSAM PERU/CASTOR OIL 60 GM TUBE TOP (12:08)
[2019-06-21] MEDS ORDERED: LORATADINE 10 MG TAB PO (13:30)
[2019-06-21] MEDS ORDERED: AMIKACIN IV PER PHARMACY XX (13:30)
[2019-06-21] MEDS ORDERED: DIPHENHYDRAMINE 2.5 MG/ML 5ML CUP NGT (13:30)
[2019-06-21] MEDS: QUETIAPINE 25 MG TAB NGT ×2 (14:36→20:25)
[2019-06-21] MEDS: LORATADINE 10 MG TAB NGT (14:37)
[2019-06-21] MEDS: FLUCONAZOLE 200 MG (PMX) 100 ML IVPB (15:40)
[2019-06-21] MEDS: MIDODRINE 5 MG TAB PO (16:27)
[2019-06-21] MEDS: AMIKACIN IVPB (17:07)
[2019-06-21] MEDS: SOD CHLORIDE 0.9% IVPB (17:07)
[2019-06-21] MEDS: ATORVASTATIN 10 MG TAB NGT (20:25)
[2019-06-21] MEDS ORDERED: HYDROCORTISONE 0.5% 28.35 GM CR TOP (21:00)
[2019-06-22 04:33] LABS: ADD MAN DIFF? NO
[2019-06-22 04:35] LABS: BASOPHILS % 0.4 % (0.0-2.0); EOSINOPHILS # 0.7 10^3/ul (0.0-0.5); EOSINOPHILS % 8.2 % (0.0-7.0); HEMATOCRIT 31.1 % (42.0-52.0); HEMOGLOBIN 9.3 g/dl (14.0-18.0); LYMPHOCYTES # 1.5 10^3/ul (0.8-2.9); LYMPHOCYTES % 19.1 % (15.0-51.0); MEAN CORPUSCULAR HEMOGLOBIN 26.9 pg (29.0-33.0); MEAN CORPUSCULAR HGB CONC 29.9 g/dl (32.0-37.0); MEAN CORPUSCULAR VOLUME 89.9 fl (82.0-101.0); MEAN PLATELET VOLUME 9.6 fl (7.4-10.4); MONOCYTE # 0.7 10^3/ul (0.3-0.9); MONOCYTES % 8.3 % (0.0-11.0); NEUTROPHIL # 4.7 10^3/ul (1.6-7.5); NEUTROPHILS % 59.2 % (39.0-77.0); PLATELET COUNT 276 10^3/UL (140-415); RED BLOOD COUNT 3.46 10^6/ul (4.70-6.10); RED CELL DISTRIBUTION WIDTH 17.2 % (11.5-14.5)
[2019-06-22 04:57] LABS: ANION GAP 3 (5-13); BLOOD UREA NITROGEN 23 mg/dl (7-20); CALCIUM 7.5 mg/dl (8.4-10.2); CARBON DIOXIDE 27 mmol/L (21-31); CHLORIDE 122 mmol/L (97-110); CREATININE 0.49 mg/dl (0.61-1.24); Estimated GFR > 60 mL/min (>60); GLUCOSE 171 mg/dl (70-220); POTASSIUM 3.4 mmol/L (3.5-5.1); SODIUM 152 mmol/L (135-144)
[2019-06-22] MEDS: DAKINS 0.0125%(1/40) 473 ML SOLUTION TP ×2 (05:46→12:41)
[2019-06-22] MEDS: MUPIROCIN 2% 22 GM OINT TOP ×2 (05:47→09:12)
[2019-06-22] MEDS: PANTOPRAZOLE 40 MG INJ IV (05:52)
[2019-06-22] MEDS: MULTIVITAMINS THERAPEUTIC TAB PO (09:02)
[2019-06-22] MEDS: LORATADINE 10 MG TAB NGT (09:02)
[2019-06-22] MEDS: ASCORBIC ACID 500 MG TAB PO (09:02)
[2019-06-22] MEDS: LACTOBACILLUS RHAMNOSUS CAP PO (09:02)
[2019-06-22] MEDS: THIAMINE 100 MG TAB PO (09:03)
[2019-06-22] MEDS: ZINC SULFATE 220 MG CAP NGT (09:03)
[2019-06-22] MEDS: TIGECYCLINE 50 MG in SOD CHLORIDE 0.9% 100 ML IVPB (09:09)
[2019-06-22] MEDS: COLLAGENASE 5 GM (UD JAR) TOP (09:12)
[2019-06-22] MEDS: BALSAM PERU/CASTOR OIL 60 GM TUBE TOP (09:13)
[2019-06-22] MEDS: ENOXAPARIN 40 MG/0.4 ML SYG SC (09:19)
[2019-06-22] MEDS: FLUCONAZOLE 200 MG (PMX) 100 ML IVPB (16:15)
== END 2019-06-22 17:06 | DRG 870 ==
LOC: TEL 06-18 13:18 → E/R 10:10 → ICU 12:29
PROC: 5A1955Z Respiratory Ventilation, Greater than 96 Consecutive Hours (ICD-10-PCS; principal; 2019-06-11)
DX: A41.50 Gram-negative sepsis, unspecified (principal); L89.153 Pressure ulcer of sacral region, stage 3; R65.21 Severe sepsis with septic shock; G93.40 Encephalopathy, unspecified; K56.609 Unspecified intestinal obstruction, unspecified as to partial versus complete obstruction; N17.9 Acute kidney failure, unspecified; E87.1 Hypo-osmolality and hyponatremia; N39.0 Urinary tract infection, site not specified; Z99.11 Dependence on respirator [ventilator] status; J96.10 Chronic respiratory failure, unspecified whether with hypoxia or hypercapnia; I69.354 Hemiplegia and hemiparesis following cerebral infarction affecting left non-dominant side; G82.20 Paraplegia, unspecified; Z93.0 Tracheostomy status; Z93.1 Gastrostomy status; Z93.3 Colostomy status; S14.105S Unspecified injury at C5 level of cervical spinal cord, sequela; J44.9 Chronic obstructive pulmonary disease, unspecified; Z87.820 Personal history of traumatic brain injury; D64.9 Anemia, unspecified; D69.6 Thrombocytopenia, unspecified; T14.8XXS Other injury of unspecified body region, sequela; K31.84 Gastroparesis; Z22.322 Carrier or suspected carrier of Methicillin resistant Staphylococcus aureus; L27.0 Generalized skin eruption due to drugs and medicaments taken internally
CPT/HCPCS: 36573; 36600; 71045; 74018; 74177; 74250; 80048; 80053; 80061; 80076; 80150; 80202; 81001; 82270; 82803; 82962; 83036; 83605; 83735; 84100; 84443; 84484; 85014; 85018; 85025; 85610; 85730; 87040-91; 87070; 87081; 87086; 93005; 94002; 94003; 95819; 96365; 96367; 96375; 99285-25